=== PATIENT | male | born 1995 | race Caucasian/White ===

== ENCOUNTER 2017-04-04 12:08 | Emergency (ER) | payer OTHER ==
[~2017-04-04] VITALS: Ht 170.2 cm; Wt 77.5 kg
[2017-04-04 12:15] VITALS: TEMP 36.8; Ht 170.2 cm; Wt 77.5 kg
--- NOTE | 2017-04-04 12:32 | EMERGENCY ROOM VISIT NOTE ---
History First contact with patient: 12:19 Chief Complaint: CARDIAC ASSESSMENT Stated Complaint: CHEST PAIN,SHOULDER PAIN,SOB History of Present Illness The patient is a 21 year old male who is otherwise healthy who presents to the Emergency Room with complaints of "chest pain, shoulder pain, shortness of breath". The patient states that he 2 weeks ago choked on a piece of food and was seen by Dr. luther [facility] and is scheduled for an EGD. That was because of dysphagia. He states that yesterday he was sitting down and he felt as though he needed to stretch his left shoulder therefore recent behind him with his left arm and felt a sharp pain sensation in the left chest that was tight and now he cannot breathe. He states that he had no energy, lost his vision for a brief period of time and his friend put up against the wall and he slid down and almost lost consciousness. He states that the pain is now persistent in the chest and is worse with deep breath. He's never had this before. There are shortness of breath associated with this. He denies any smoking, recent long travel, fracture of bones. Review of Systems A complete 10-point Review of Systems was discussed with the patient, with pertinent positives and negatives listed in the History of Present Illness. All remaining Review of Systems questions can be considered negative unless otherwise specified. Past Medical/Surgical History Dysphagia. Family History No pertinent. Social History Smoking Status: Current Some Day Smoker Patient is a [email or web address] student and lives locally. Current/Historical Medications Scheduled Sucralfate (Carafate), 1 GM PO QID Physical Exam Vital Signs Date Time Temp Pulse Resp B/P (MAP) Pulse Ox O2 Delivery O2 Flow Rate FiO2 04/04/17 15:46 63 18 99/74 99 04/04/17 14:05 76 16 115/83 99 Room Air 04/04/17 12:48 72 04/04/17 12:47 71 128/61 79 132/89 80 115/83 04/04/17 12:40 99 Room Air 04/04/17 12:40 99 Room Air 04/04/17 12:15 36.8 87 19 142/77 99 Room Air Physical Exam VITAL SIGNS - Vital signs and nursing notes were reviewed. Stable. Afebrile. Not tachycardic and is saturating well on room air at 99%. GENERAL -21-year-old male appearing his stated age who is in no acute distress. Communicates well with provider and answers questions appropriately. SKIN - Without rashes. No petechial rashes. HEAD - NC/AT. EYES - PERRL with EOMI bilaterally. Sclera anicteric. No hyphema. EARS - No deformities of external structures noted on gross examination bilaterally. No pain elicited with palpation of the tragus bilaterally. External auditory canals without discharge or otorrhea. Tympanic membranes pearly coelho without retraction or bulging. No fluid or purulent material visualized behind the TM. Handle of malleus, umbo, cone of light, pars tensa/ flaccid all easily visualized. No hemotympanum. NOSE - Midline and without cyanosis. No epistaxis or purulent drainage noted. Septum midline without deviation or septal hematoma noted. MOUTH/OROPHARYNX - Without perioral cyanosis. Buccal mucosa pink and moist and without leukoplakia. Tongue midline with equal elevation of palate bilaterally. No tonsillar hypertrophy, erythema, or exudates noted. Good dentition noted. NECK - Neck with FROM. Supple to palpation. No lymphadenopathy noted. No nuchal rigidity. LUNGS - Chest wall symmetric without accessory muscle use, intercostals retractions, or central cyanosis. Normal vesicular breath sounds CTA B/L. No wheezes, rales, or rhonchi appreciated. CARDIAC - RRR with S1/S2. No murmur, rubs, or gallops appreciated. Chest pain is not reproducible with palpation. EXTREMITIES - No clubbing or peripheral cyanosis. No pretibial edema present. +3 /5 radial, posterior tibial, and dorsalis pedis pulses palpated throughout. +5/ 5 strength noted in UE/LE bilaterally. Left shoulder is nontender. NEUROLOGIC - Cranial nerves II through XII grossly intact. Sensory intact to light touch throughout. PSYCH - A&Ox3 and cooperates fully with examiner. Pt is very pleasant and interacts well with examiner. Medical Decision & Procedures ER Provider Diagnostic Interpretation: CHEST ONE VIEW PORTABLE CLINICAL HISTORY: Chest pain, dyspnea chest pain COMPARISON STUDY: No previous studies for comparison. FINDINGS: The bones soft tissues and hemidiaphragms are normal. The cardiomediastinal silhouette is normal. The lungs are clear. The pulmonary vasculature is normal. IMPRESSION: Negative chest. The above report was generated using voice recognition software. It may contain grammatical, syntax or spelling errors. Electronically signed by: Moises Griggs M.D. 04/04/2017 12:52 PM Dictated Date/Time: 04/04/2017 12:51 PM Laboratory Results 04/04/17 11:40 Red Blood Count 5.38, Mean Corpuscular Volume 85.5, Mean Corpuscular Hemoglobin 29.7, Mean Corpuscular Hemoglobin Concent 34.8, Mean Platelet Volume 9.1, Neutrophils (%) (Auto) 60.9, Lymphocytes (%) (Auto) 31.1, Monocytes (%) (Auto) 6.6, Eosinophils (%) (Auto) 0.8, Basophils (%) (Auto) 0.3, Neutrophils # (Auto) 3.71, Lymphocytes # (Auto) 1.90, Monocytes # (Auto) 0.40, Eosinophils # (Auto) 0.05, Basophils # (Auto) 0.02 04/04/17 11:40 Test 04/04/17 11:40 04/04/17 12:44 04/04/17 14:30 White Blood Count 6.10 K/uL (4.8-10.8) Red Blood Count 5.38 M/uL (4.7-6.1) Hemoglobin 16.0 g/dL (14.0-18.0) Hematocrit 46.0 % (42-52) Mean Corpuscular Volume 85.5 fL (80-100) Mean Corpuscular Hemoglobin 29.7 pg (25-34) Mean Corpuscular Hemoglobin Concent 34.8 g/dl (32-36) Platelet Count 189 K/uL (130-400) Mean Platelet Volume 9.1 fL (7.4-10.4) Neutrophils (%) (Auto) 60.9 % Lymphocytes (%) (Auto) 31.1 % Monocytes (%) (Auto) 6.6 % Eosinophils (%) (Auto) 0.8 % Basophils (%) (Auto) 0.3 % Neutrophils # (Auto) 3.71 K/uL (1.4-6.5) Lymphocytes # (Auto) 1.90 K/uL (1.2-3.4) Monocytes # (Auto) 0.40 K/uL (0.11-0.59) Eosinophils # (Auto) 0.05 K/uL (0-0.5) Basophils # (Auto) 0.02 K/uL (0-0.2) RDW Standard Deviation 40.5 fL (36.4-46.3) RDW Coefficient of Variation 13.1 % (11.5-14.5) Immature Granulocyte % (Auto) 0.3 % Immature Granulocyte # (Auto) 0.02 K/uL (0.00-0.02) Erythrocyte Sedimentation Rate 10 mm/hr (0-14) Anion Gap 6.0 mmol/L (3-11) Est Creatinine Clear Calc Drug Dose 107.0 ml/min Estimated GFR () 120.6 Estimated GFR (Non- 104.1 BUN/Creatinine Ratio 14.2 (10-20) Calcium Level 9.0 mg/dl (8.5-10.1) Magnesium Level 2.0 mg/dl (1.8-2.4) Total Bilirubin 0.7 mg/dl (0.2-1) Aspartate Amino Transf (AST/SGOT) 16 U/L (15-37) Alanine Aminotransferase (ALT/SGPT) 33 U/L (12-78) Alkaline Phosphatase 112 U/L (45-117) Total Creatine Kinase 155 U/L (39-308) Creatine Kinase MB 3.2 ng/ml (0.5-3.6) Creatine Kinase MB Ratio 2.1 (0-3.0) Troponin I < 0.015 ng/ml (0-0.045) C-Reactive Protein 0.52 mg/dl (0-0.29) Total Protein 7.8 gm/dl (6.4-8.2) Albumin 4.0 gm/dl (3.4-5.0) Globulin 3.8 gm/dl (2.5-4.0) Albumin/Globulin Ratio 1.0 (0.9-2) Thyroid Stimulating Hormone (TSH) 1.430 uIu/ml (0.300-4.500) Lyme Disease IgG Antibody NEG (NEG) Lyme Disease IgM Antibody NEG (NEG) Bedside D-Dimer 373 ng/mlFEU (0-450) Bedside Troponin I < 0.030 ng/ml (0-0.045) Urine Color YELLOW Urine Appearance CLOUDY (CLEAR) Urine pH 6.5 (4.5-7.5) Urine Specific [place] 1.022 (1.000-1.030) Urine Protein NEG (NEG) Urine Glucose (UA) NEG (NEG) Urine Ketones TRACE (NEG) Urine Occult Blood NEG (NEG) Urine Nitrite NEG (NEG) Urine Bilirubin NEG (NEG) Urine Urobilinogen NEG (NEG) Urine Leukocyte Esterase NEG (NEG) Urine WBC (Auto) 5-10 /hpf (0-5) Urine RBC (Auto) 0-4 /hpf (0-4) Urine Hyaline Casts (Auto) 10-30 /lpf (0-5) Urine Epithelial Cells (Auto) >30 /lpf (0-5) Urine Bacteria (Auto) NEG (NEG) Urine Renal Epithelial Cells /lpf (0-5) Urine Mucus PRESENT (NONE PRSENT) Medical Decision Patient was seen and evaluated as above. He presents to us today with chest pain and shortness of breath. There is no past medical history contributory to this. Yesterday his symptoms are concerning for that of either vasovagal episode following pain, or perhaps his movement. It is also possible that he had a hypoglycemic event. IV access was initiated, and the above workup was performed. Bedside EKG reveals normal sinus rhythm, no ectopy or ischemic change. Chest x-ray negative. He was well throughout his stay. CBC reveals no leukocytosis or anemia. ESR normal. D-dimer normal. Metabolic panel normal. Troponin negative. C-reactive protein at 0.52. TSH normal. Urinalysis contaminated sample. Lyme testing negative. Testicular results as above. Case was discussed with the attending physician. At this time I believe the patient is stable for discharge for follow-up with [facility]. No emergent process identified. I suspect a vasovagal episode. He is not orthostatic. He was educated upon management, educated upon worrisome symptoms which to return, had questions answered prior to discharge, and was discharged home in good condition. In evaluation treatment this patient following differential diagnoses were entertained: MS, PE, costochondritis, pericarditis, gastroesophageal reflux, vasovagal syncope, among others. Impression Primary Impression: Chest pain Additional Impression: Near syncope Departure Information Dispostion Home / Self-Care Condition GOOD Referrals Shaheed Abbasi M.D. (PCP) Patient Instructions My [facility] Additional Instructions You have been treated in the Emergency Department your chest pain shortness of breath and near syncopal event. Laboratory results and imaging studies have ruled out any emergent causes for your symptoms which would warrant admission or surgery. For pain control, you can use the following [id number] medicines (if >12 yo): - Regular strength (325mg/tab) Tylenol (acetaminophen) 2 tabs every 4-6 hours as needed. Do not exceed 12 tablets in a 24 hour period. Avoid taking more than 3 grams (3000 mg) of Tylenol per day. This includes any other sources of acetaminophen you may take on a regular basis. - Regular strength (200 mg/tab) Advil (ibuprofen) 1-2 tabs every 4-6 hours as needed. Do not exceed a dose of 3200 mg per day. Drink plenty of water and stay well hydrated. As with any trip to the Emergency Department, you should follow-up with your Primary Care Provider from today's visit. Please follow with [facility] for recheck of your current condition. Return to the emergency department if your symptoms persist despite treatment plan outlined above or if the following symptoms occur: increased fevers, chills , worsening nausea/vomiting, blood in your stool or urine. Problem Qualifiers
[2017-04-04 12:40] VITALS: O2SAT 99
--- NOTE | 2017-04-04 12:53 | DIAGNOSTIC IMAGING REPORT ---
CHEST ONE VIEW PORTABLE CLINICAL HISTORY: Chest pain, dyspnea chest pain COMPARISON STUDY: No previous studies for comparison. FINDINGS: The bones soft tissues and hemidiaphragms are normal. The cardiomediastinal silhouette is normal. The lungs are clear. The pulmonary vasculature is normal. IMPRESSION: Negative chest. The above report was generated using voice recognition software. It may contain grammatical, syntax or spelling errors. Electronically signed by: Moises Griggs M.D. 04/04/2017 12:52 PM Dictated Date/Time: 04/04/2017 12:51 PM
[2017-04-04 13:03] LABS: POINT OF CARE TROPONIN I < 0.030 ng/ml (0-0.045)
[2017-04-04 13:06] LABS: BASO % 0.3 %; BASO ABS # 0.02 K/uL (0-0.2); COMPLETE YES; EOS % 0.8 %; IG% 0.3 %; LYMPH % 31.1 %; MEAN CELL VOLUME 85.5 fL (80-100); MEAN CORPUSCULAR HEMOGLOBIN 29.7 pg (25-34); MEAN CORPUSCULAR HGB CONC 34.8 g/dl (32-36); MEAN PLATELET VOLUME 9.1 fL (7.4-10.4); MONO % 6.6 %; NEUT % 60.9 %; PLATELET COUNT 189 K/uL (130-400); RED BLOOD COUNT 5.38 M/uL (4.7-6.1)
[2017-04-04] MEDS ORDERED: SUCR1TAB29 PO (13:06)
[2017-04-04 13:21] LABS: BLOOD UREA NITROGEN 15 mg/dl (7-18); CREATININE 1.03 mg/dl (0.60-1.40); GLUCOSE 91 mg/dl (70-99)
[2017-04-04 13:22] LABS: ALT/SGPT 33 U/L (12-78); AST/SGOT 16 U/L (15-37); BUN/CREATININE RATIO 14.2 (10-20); C-REACTIVE PROTEIN 0.52 mg/dl (0-0.29); CARBON DIOXIDE 29 mmol/L (21-32); CHLORIDE 103 mmol/L (98-107); POTASSIUM 3.7 mmol/L (3.5-5.1); SODIUM 138 mmol/L (136-145)
[2017-04-04 13:30] LABS: ALKALINE PHOSPHATASE 112 U/L (45-117); CKMB/CK RATIO 2.1 (0-3.0)
[2017-04-04 13:53] LABS: LYME DISEASE AB IGG NEG (NEG)
[2017-04-04 13:54] LABS: LYME DISEASE AB IGM NEG (NEG)
[2017-04-04 14:55] LABS: URINE APPEARANCE CLOUDY (CLEAR); URINE BILIRUBIN NEG (NEG); URINE COLOR YELLOW; URINE EPITHELIAL CELL AUTO >30 /lpf (0-5); URINE NITRITE NEG (NEG); URINE PH 6.5 (4.5-7.5); URINE SPECIFIC GRAVITY 1.022 (1.000-1.030); UROBILINOGEN NEG (NEG); ZZUR CULT IF INDIC CLEAN CATCH NO
[2017-04-04 15:01] LABS: MANUAL MICROSCOPIC REQUIRED? NO; REVIEW REQ? YES
[2017-04-04 15:09] LABS: URINE MUCUS PRESENT (NONE PRSENT)
[2017-04-04 15:46] VITALS: BP 99/74; PULSE 63; O2SAT 99
== END 2017-04-04 15:47 | disposition home or self-care (01) ==
LOC: C.EDB 12:10 → C.EDC 15:47
DX: R07.9 Chest pain, unspecified (principal); R55 Syncope and collapse; F17.200 Nicotine dependence, unspecified, uncomplicated